=== PATIENT | male | born 1955 | race Caucasian/White ===

== ENCOUNTER 2020-04-17 17:26 | Outpatient (REF) | payer MEDICARE, SELFPAY ==
[2020-04-18 18:13] LABS: PSA, Screening 4.5 ng/mL (0.0-4.5)
== END 2020-04-17 17:46 ==
LOC: NCHCN 17:26
PROVIDERS: PCP Specialist/Technologist Athletic Trainer; Visit Provider Nurse Practitioner Family
DX: Z12.5 Encounter for screening for malignant neoplasm of prostate (principal)
CPT/HCPCS: 84153

== ENCOUNTER 2021-05-14 15:28 | Outpatient (REF) | payer MEDICARE, SELFPAY ==
[2021-05-14 15:15] LABS: ALT 26 U/L (16-63); AST 19 U/L (15-37); Anion Gap 10.3 mmol/L (3-11); BUN 18 mg/dL (7-18); CO2 23.7 mmol/L (21.0-32.0); CREATININE 0.9 mg/dL (0.70-1.30); Calcium 9.1 mg/dL (8.5-10.1); Calculated LDL 132 mg/dL (<100); Chloride 106 mmol/L (98-107); Cholesterol 230 mg/dL (<200); Glucose 87 mg/dL (74-106); HDL Cholesterol 82 mg/dL (40-60); Potassium 4.4 mmol/L (3.5-5.1); Sodium 140 mmol/L (136-145); Triglyceride 80 mg/dL (<150)
[2021-05-14 22:59] LABS: PSA, Screening 5.3 ng/mL (0.0-4.5)
== END 2021-05-14 15:29 | disposition home or self-care (01) ==
LOC: NCHCN 15:28
PROVIDERS: PCP Specialist/Technologist Athletic Trainer; Visit Provider Nurse Practitioner Family
DX: E78.5 Hyperlipidemia, unspecified (principal); F17.200 Nicotine dependence, unspecified, uncomplicated; Z12.5 Encounter for screening for malignant neoplasm of prostate
CPT/HCPCS: 80048; 80061; 84153; 84450; 84460

== ENCOUNTER 2021-05-29 15:15 | Outpatient (REF) | payer MEDICARE, SELFPAY ==
[2021-05-30 13:18] LABS: COVID-19 RT-PCR UVMMC Result Negative (Negative)
== END 2021-05-29 15:16 | disposition home or self-care (01) ==
LOC: NCHCN 15:15
PROVIDERS: PCP Specialist/Technologist Athletic Trainer; Visit Provider Nurse Practitioner Family
DX: Z20.822 Contact with and (suspected) exposure to COVID-19 (principal)
CPT/HCPCS: U0003; U0005

== ENCOUNTER 2021-07-11 18:27 | Outpatient (REF) | payer MEDICARE, SELFPAY ==
[2021-07-11 22:29] LABS: PSA, Diagnostic 4.7 ng/mL (0.0-4.5)
== END 2021-07-11 18:28 | disposition home or self-care (01) ==
LOC: NCHCN 18:27
PROVIDERS: PCP Specialist/Technologist Athletic Trainer; Visit Provider Nurse Practitioner Family
DX: R97.20 Elevated prostate specific antigen [PSA] (principal)
CPT/HCPCS: 84153

== ENCOUNTER 2022-01-31 16:06 | Outpatient (REF) | payer MEDICARE, SELFPAY ==
[2022-02-03 09:41] LABS: PSA, Screening 5.8 ng/mL (<=4.5)
== END 2022-01-31 16:07 | disposition home or self-care (01) ==
LOC: NCHCN 16:06
PROVIDERS: PCP Specialist/Technologist Athletic Trainer; Visit Provider Nurse Practitioner Family
DX: R97.20 Elevated prostate specific antigen [PSA] (principal); Z12.5 Encounter for screening for malignant neoplasm of prostate
CPT/HCPCS: 84153

== ENCOUNTER → 2022-03-04 01:46 | Outpatient (CLI) | payer MEDICARE, SELFPAY ==
--- NOTE | 2022-03-04 | DI.CTLCSR_ITS ---
Exam(s) CT CHEST LUNG CANCER SCREEN EXAM: CT CHEST LUNG CANCER SCREEN CLINICAL HISTORY: SMOKER F17.210, F17.200 SCREENING FOR LUNG CANCER TECHNIQUE: Imaging Protocol: Axial computed tomography images with coronal and sagittal reformatted images were created and reviewed COMPARISON: No exams were available for comparison FINDINGS: Tracheobronchial tree: Patent where visualized. Pulmonary parenchyma: No consolidation or dominant measurable mass. Moderate paraseptal and mild cent rilobular emphysematous changes are present in the lungs. Lung Nodules: There is a 1.3 cm area spiculation in the right lung apex. No other pulmonary nodules are seen. Mediastinum and Zari: No dominant adenopathy or fluid collection. The esophagus is unremarkable. Thyroid gland: Unremarkable. Lymph nodes: Unremarkable. Pleura: No effusion or pneumothorax. Heart: The heart is not dilated. No coronary artery calcifications are seen. No pericardial effusion . Aorta: The ascending thoracic aorta measures 4.1 x 4 cm.Atherosclerosis is present. Upper abdomen: Unremarkable. Soft Tissues: Unremarkable. Bones: Within normal limits. IMPRESSION: 1. 1.3 cm area of spiculation in the right lung apex. 2. Emphysematous changes in the lungs. 3. Ectasia of the ascending thoracic aorta measuring 4.1 x 4.0 cm. Atherosclerosis. Lung RADS Cat 4A - Suspicious: Findings for which additional diagnostic testing and/or tissue samplin g recommended Lung-RADS 1.0 CATEGORIES: Category 0 - Prior chest CT exam(s) being located for comparison. Category 1 - Annual screening in 12 months. No nodules or definitely benign nodules. Category 2 - Annual screening in 12 months. Benign appearance. Nodules with low likelihood of becomin g active cancer. Category 3 - 6-month follow-up. Probably benign. Short-term follow-up suggested. Nodules with low lik elihood of becoming active cancer. Category 4A - 3-month follow-up and CT/PET if >8 mm in size. Suspicious finding. Findings which requi re additional testing. Category 4B - Findings which require additional testing and tissue sampling. Suspicious finding. Category 4X - Category 3 or 4 nodules with additional features or imaging findings that increases the suspicion of malignancy. Modifier S- Potentially clinically significant finding. (Non lung cancer) RADIATION DOSE DELIVERED: 92.55mGy.cm Total DLP 1.84mGy CTDIvol 92.55mGy.cm Total DLP 1.84mGy CTDIvol DATA REPOSITORY: All CT scans at this facility are submitted to the National Radiology Data Registry (NRDR) Dose Index Registry (DIR) with the [employer] ([employer]). RADIATION OPTIMIZATION: All CT scans at this facility use at least one of these dose optimization te chniques: automated exposure control; mA and/or kV adjustment per patient size (includes targeted exa ms where dose is matched to clinical indication); or iterative reconstruction.
== END ==
PROVIDERS: PCP Specialist/Technologist Athletic Trainer; Visit Provider Nurse Practitioner Family
DX: F17.210 Nicotine dependence, cigarettes, uncomplicated (principal); Z12.2 Encounter for screening for malignant neoplasm of respiratory organs; I77.819 Aortic ectasia, unspecified site; R91.8 Other nonspecific abnormal finding of lung field
CPT/HCPCS: 71271

== ENCOUNTER 2022-07-22 12:44 | Outpatient (REF) | payer MEDICARE, SELFPAY ==
[2022-07-22 23:31] LABS: PSA, Screening 5.7 ng/mL (<=4.5)
== END 2022-07-22 12:45 | disposition home or self-care (01) ==
LOC: NCHCN 12:44
PROVIDERS: PCP Nurse Practitioner Family; Visit Provider Nurse Practitioner Family
DX: R97.20 Elevated prostate specific antigen [PSA] (principal); Z12.5 Encounter for screening for malignant neoplasm of prostate
CPT/HCPCS: 84153

== ENCOUNTER 2022-08-18 10:21 | Outpatient (REF) | payer MEDICARE, SELFPAY ==
[2022-08-18 15:22] LABS: HCT 47.6 % (40.0-50.0); HGB 15.7 g/dL (13.5-17.5); MCH 29.7 pg (27.0-33.0); MCV 90 fL (80-95); MPV 10.1 fL (8.0-11.0); Platelet Count 320 10^3/uL (130-400); RBC 5.29 10^6/uL (4.36-5.78); RDW 11.8 % (11.8-14.1); RDW-SD 39.1 fL; WBC 8.16 10^3/uL (4.4-10.8)
[2022-08-18 15:26] LABS: ALT 26 U/L (16-63); AST 22 U/L (15-37); Albumin 3.8 g/dL (3.4-5.0); Alkaline Phosphatase 83 U/L (46-116); Anion Gap 7.2 mmol/L (3-11); BUN 18 mg/dL (7-18); Bilirubin, Total 0.5 mg/dL (0.2-1.0); CO2 26.8 mmol/L (21.0-32.0); Calcium 9.6 mg/dL (8.5-10.1); Chloride 104 mmol/L (98-107); Estimated GFR 81.47 (mL/min/1.73m2); Glucose 80 mg/dL (74-106); Potassium 4.5 mmol/L (3.5-5.1); Sodium 138 mmol/L (136-145); Total Protein 6.8 g/dL (6.4-8.2)
== END 2022-08-18 10:22 | disposition home or self-care (01) ==
LOC: NCHCN 10:21
PROVIDERS: PCP Nurse Practitioner Family; Visit Provider Nurse Practitioner Family
DX: Z00.00 Encounter for general adult medical examination without abnormal findings (principal); F17.200 Nicotine dependence, unspecified, uncomplicated; E78.5 Hyperlipidemia, unspecified
CPT/HCPCS: 80053; 85027

== ENCOUNTER 2022-12-26 10:11 | Outpatient (REF) | payer MEDICARE, SELFPAY ==
[2022-12-26 15:18] LABS: Calculated LDL 132 mg/dL (<100); Cholesterol 218 mg/dL (<200); HDL Cholesterol 75 mg/dL (40-60); Triglyceride 57 mg/dL (<150)
[2022-12-29 08:23] LABS: PSA, Screening 5.3 ng/mL (<=4.5)
== END 2022-12-26 10:12 | disposition home or self-care (01) ==
LOC: NCHCN 10:11
PROVIDERS: PCP Nurse Practitioner Family; Visit Provider Nurse Practitioner Family
DX: R97.20 Elevated prostate specific antigen [PSA] (principal); E78.5 Hyperlipidemia, unspecified; Z12.5 Encounter for screening for malignant neoplasm of prostate; Z00.00 Encounter for general adult medical examination without abnormal findings
CPT/HCPCS: 80061; 84153

== ENCOUNTER 2023-08-21 14:45 | Outpatient (REF) | payer MEDICARE, SELFPAY ==
[2023-08-21 17:26] LABS: HCT 45.5 % (40.0-50.0); HGB 14.8 g/dL (13.5-17.5); MCH 30.5 pg (27.0-33.0); MCHC 32.5 % (32.0-36.0); MCV 94 fL (80-95); MPV 9.9 fL (8.0-11.0); Platelet Count 320 10^3/uL (130-400); RBC 4.85 10^6/uL (4.36-5.78); RDW 11.9 % (11.8-14.1); RDW-SD 41.2 fL; WBC 7.56 10^3/uL (4.4-10.8)
[2023-08-21 17:36] LABS: ALT 26 U/L (16-63); AST 24 U/L (15-37); Albumin 4.1 g/dL (3.4-5.0); Alkaline Phosphatase 73 U/L (46-116); Anion Gap 9.7 mmol/L (3-11); BUN 24 mg/dL (7-18); Bilirubin, Total 0.6 mg/dL (0.2-1.0); CO2 26.3 mmol/L (21.0-32.0); Calcium 9.3 mg/dL (8.5-10.1); Chloride 105 mmol/L (98-107); Estimated GFR 80.97 (mL/min/1.73m2); Glucose 95 mg/dL (74-106); Potassium 4.5 mmol/L (3.5-5.1); Sodium 141 mmol/L (136-145); Total Protein 6.8 g/dL (6.4-8.2)
[2023-08-24 09:48] LABS: PSA, Diagnostic 5.1 ng/mL (<=6.5)
== END 2023-08-21 14:46 | disposition home or self-care (01) ==
LOC: NCHCN 14:45
PROVIDERS: PCP Nurse Practitioner Family; Visit Provider Nurse Practitioner Family
DX: E78.5 Hyperlipidemia, unspecified (principal); R91.1 Solitary pulmonary nodule; R97.20 Elevated prostate specific antigen [PSA]
CPT/HCPCS: 80053; 85027; 84153

== ENCOUNTER → 2023-09-30 01:40 | Outpatient (CLI) | payer MEDICARE, SELFPAY ==
--- NOTE | 2023-09-30 | DI.CT_ITS ---
Exam(s) CT CHEST WO EXAM: CT CHEST WO CLINICAL HISTORY: R91.1 Solitary pulmonary nodule. TECHNIQUE: Imaging protocol: Axial computed tomography images were obtained and coronal and sagittal reformatted images were created and reviewed. CONTRAST MATERIAL: Noncontrast COMPARISON: CT CT CHEST LUNG CANCER SCREEN from 03/04/2022 FINDINGS: Heart: The heart is not dilated. Minimal coronary artery calcifications are seen. Aorta: Stable diameter 4 cm. Mild atherosclerotic changes. Pulmonary parenchyma: Stable area of somewhat nodular scarring at the right lung apex. No consolidat ion. Linear scarring at the left lung base. Emphysematous changes and scarring at the lung apices. Emphysema: Emphysematous changes at the lung apices. Tracheobronchial tree: No mucous plugging. No bronchiectasis . Interstitial changes: None. Pleura: No effusion or pneumothorax. Lymph nodes: No enlarged lymph nodes. Bones: Degenerative changes are seen. No evidence of compression fracture. Upper abdomen: Unremarkable. Soft tissues: Unremarkable. IMPRESSION: Stable area of somewhat nodular scarring at the right lung apex. No new findings. Due to the nodula r appearance, further six-month follow-up or PET-CT could be considered. RADIATION DOSE DELIVERED: 544.73mGy.cm Total DLP 544.73mGy.cm Total DLP DATA REPOSITORY: All CT scans at this facility are submitted to the National Radiology Data Registry (NRDR) Dose Index Registry (DIR) with the [employer] ([employer]). RADIATION OPTIMIZATION: All CT scans at this facility use at least one of these dose optimization te chniques: automated exposure control; mA and/or kV adjustment per patient size (includes targeted exa ms where dose is matched to clinical indication); or iterative reconstruction.
== END ==
PROVIDERS: PCP Nurse Practitioner Family; Visit Provider Nurse Practitioner Family
DX: R91.1 Solitary pulmonary nodule (principal)
CPT/HCPCS: 71250

== ENCOUNTER 2024-10-21 14:02 | Outpatient (REF) | payer MEDICARE, SELFPAY ==
[2024-10-21 14:15] LABS: HCT 43.6 % (40.0-50.0); HGB 14.8 g/dL (13.5-17.5); MCH 30.6 pg (27.0-33.0); MCHC 33.9 % (32.0-36.0); MCV 90 fL (80-95); MPV 9.7 fL (8.0-11.0); Platelet Count 321 10^3/uL (130-400); RBC 4.83 10^6/uL (4.36-5.78); RDW 12.2 % (11.8-14.1); RDW-SD 40.6 fL; WBC 7.73 10^3/uL (4.4-10.8)
[2024-10-21 15:10] LABS: ALT 29 U/L (16-63); AST 25 U/L (15-37); Albumin 3.7 g/dL (3.4-5.0); Alkaline Phosphatase 81 U/L (46-116); Anion Gap 9.7 mmol/L (3-11); BUN 16 mg/dL (7-18); Bilirubin, Total 0.5 mg/dL (0.2-1.0); CO2 24.3 mmol/L (21.0-32.0); CREATININE 0.8 mg/dL (0.70-1.30); Calcium 9.9 mg/dL (8.5-10.1); Calculated LDL 136 mg/dL (<100); Chloride 106 mmol/L (98-107); Cholesterol 232 mg/dL (<200); Estimated GFR 94.62 (mL/min/1.73m2); Glucose 82 mg/dL (74-106); HDL Cholesterol 74 mg/dL (>or=40); Potassium 4.5 mmol/L (3.5-5.1); Sodium 140 mmol/L (136-145); Total Protein 6.8 g/dL (6.4-8.2); Triglyceride 113 mg/dL (<150)
[2024-10-21 22:18] LABS: PSA, Screening 7.7 ng/mL (<=6.5)
== END 2024-10-21 14:03 | disposition home or self-care (01) ==
LOC: NCHCN 14:02
PROVIDERS: PCP Nurse Practitioner Family; Visit Provider Nurse Practitioner Family
DX: E78.5 Hyperlipidemia, unspecified (principal); R91.1 Solitary pulmonary nodule; Z12.5 Encounter for screening for malignant neoplasm of prostate
CPT/HCPCS: 80053; 80061; 84153; 85027

== ENCOUNTER 2024-10-28 00:28 | Outpatient (CLI) | payer MEDICARE, SELFPAY ==
--- NOTE | 2024-10-28 | DI.US_ITS ---
Exam(s) US AAA SCREENING EXAM: US AAA SCREENING CLINICAL HISTORY: Encounter for screening for cardiovascular disorders, Z13.6; smoker, h/o COMPARISON: No exams were available for comparison FINDINGS: Maximum diameter the abdominal aorta is 2.8 cm proximally and the aorta tapers distally in normal fas hion. Visualized common iliac arteries exhibit upper normal diameters. IMPRESSION: No evidence of abdominal aortic aneurysm. DATA REPOSITORY:
--- NOTE | 2024-10-28 07:40 | DI.CT_ITS ---
Exam(s) CT CHEST WO EXAM: CT CHEST WO CLINICAL HISTORY: Solitary pulmonary nodule, R91.1. TECHNIQUE: Multi planar reconstructions were performed. CONTRAST MATERIAL: None COMPARISON: CT CT CHEST WO from 09/30/2023 FINDINGS: CHEST: LUNGS: Emphysematous changes in the upper lungs again noted and again more prominent on the right mark e. Previously described right apical scarring appears unchanged. Left apical scarring is also uncha nged. There are no new infiltrates in the left lung. There is scarring again noted in the posterior basal segment of the right lower lobe and some mild increase atelectasis or early developing infiltr ate at this level. There are no pleural effusions on either side. There are no significant focal fi ndings in the trachea and mainstem bronchi. MEDIASTINUM: There is no obvious hilar nor mediastinal adenopathy. Visualized thyroid unremarkable.No obvious axillary adenopathy CARDIAC: Heart size is normal. There is no pericardial effusion.Enlarged ascending thoracic aorta is again noted. Maximum diameter of the ascending thoracic aorta is presently 4.4 cm; previously was 4 .0 cm. The diameter of the mid aortic arch is also enlarged, measuring 3.4 cm and the diameter of th e proximal descending thoracic aorta is 3 cm. VISUALIZED UPPER ABDOMEN: OSSEOUS: No significant osseous lesions.No fractures.. IMPRESSION: 1. Continued stable appearance of the scarring in both lung apices, this superimposed upon emphysemat ous changes in both upper lobes. 2. Increasing benign-appearing markings in the posterior basal segment of the right lower lobe; possi ble developing infiltrate at this location. There are no pleural effusions nor intrathoracic adenopa thy. 3. Aneurysmal dilatation of the ascending thoracic aorta with present measurement of 4.4 cm which is larger than the prior measurement of 4.0 cm. Appropriate follow-up recommended for this abnormal fin ding. RADIATION DOSE DELIVERED: 217.29mGy.cm Total DLP DATA REPOSITORY: All CT scans at this facility are submitted to the National Radiology Data Registry (NRDR) Dose Index Registry (DIR) with the [employer] ([employer]). RADIATION OPTIMIZATION: All CT scans at this facility use at least one of these dose optimization te chniques: automated exposure control; mA and/or kV adjustment per patient size (includes targeted exa ms where dose is matched to clinical indication); or iterative reconstruction.
== END 2024-10-28 00:48 ==
LOC: DI 00:28
PROVIDERS: PCP Nurse Practitioner Family; Visit Provider Nurse Practitioner Family
DX: R91.8 Other nonspecific abnormal finding of lung field (principal)
CPT/HCPCS: 71250; 76706